=== PATIENT | male | born 1955 | race Caucasian/White ===

== ENCOUNTER 2016-12-11 06:17 | Emergency (ER) | payer OTHER ==
[2016-12-11 06:32] VITALS: BP 152/88
--- NOTE | 2016-12-11 07:11 | ED ---
Laceration/Wound HPI - HPI Summary HPI Summary: 61 male presents with complaints of a laceration to his left index finger knuckle after cutting himself with a knife by accident yesterday around 6pm. Patient states he was doing mechanical work trying to cut a wire towards himself and slipped cutting his left index finger. 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 States it bled a lot yesterday however he was able to control the bleeding by applying pressure and dressing. It did not become painful, swollen and red until this morning. He noticed that the cut appeared to be pretty deep when he was able to see. He also states it is in area of high movement causing the laceration to keep opening. Unknown last tetanus. Denies any other injuries and lacerations. He is able to move his finger, but he notices that the "tip of his index finer" appears to be deformed and feels tight. Denies numbness/tingling. - History of Current Complaint Stated Complaint: LEFT HAND LAC Time Seen by Provider: 12/11/16 06:41 Hx Obtained From: Patient Mechanism of Injury: Sharp/Blunt Trauma Onset/Duration: Sudden Onset, Lasting Days Aggravating: Movement Alleviating: Compression Timing: Constant Onset Severity: Moderate Current Severity: Moderate Pain Intensity: 7 Pain Scale Used: 0-10 Numeric Associated Signs & Symptoms: Redness, Pain, Joint Swelling Related Hx: Dominant Hand (Right) - ambidextrou, writes with right hand, Dominant Hand (Left), Recent Trauma - Allergy/Home Medications Allergies/Adverse Reactions: Allergies Allergy/AdvReac Type Severity Reaction Status Date / Time No Known Allergies Allergy Verified 03/18/14 11:27 PMH/Surg Hx/FS Hx/Imm Hx Endocrine/Hematology History: Denies: Hx Diabetes Cardiovascular History: Denies: Hx Hypertension, Hx Pacemaker/ICD History: Denies: Hx Renal Disease Musculoskeletal History: Denies: Hx Scoliosis Sensory History: Denies: Hx Hearing Aid Neurological History: Denies: Hx Headaches Psychiatric History: Denies: Hx Panic Disorder - Surgical History Surgery Procedure, Year, and Place: L4-5 fusion - Immunization History Date of Tetanus Vaccine: unknown Immunizations Up to Date: Yes Infectious Disease History: No Infectious Disease History: Denies: Traveled Outside the [place] in Last 30 Days - Family History Known Family History: Positive: None - Social History Alcohol Use: None Substance Use Type: Reports: None Smoking Status (MU): Never Smoked Tobacco Review of Systems Constitutional: Negative Cardiovascular: Negative Respiratory: Negative Positive: Arthralgia, Myalgia, Decreased ROM, Edema - left index finger Positive: Other - laceration to left index finer Neurological: Negative Psychological: Normal All Other Systems Reviewed And Are Negative: Yes Physical Exam Triage Information Reviewed: Yes Vital Signs On Initial Exam: Initial Vitals Temp Pulse Resp BP Pulse Ox 98.9 F 106 20 152/88 99 12/11/16 06:30 12/11/16 06:30 12/11/16 06:30 12/11/16 06:30 12/11/16 06:30 tachycardia and elevated BP noted. patient referred to follow up with pcp about HTN. Patient was anxious and in pain, HR re-taken and 90bpm. Vital Signs Reviewed: Yes Appearance: Positive: Well-Appearing, No Pain Distress, Well-Nourished Skin: Positive: Warm, Skin Color Reflects Adequate Perfusion - < 2 second cap refill b/l hand, Dry, Erythema @ - laceration of left 4th digit at PIP, posterior/dorsal side. edema, no active bleeding. laceration approximaetly 1 cm deep, 2 cm length and .5 cm wide. tendon visible. sensation and circulation intact. witthout foreign body, no crepitus or step off.. Negative: Cold, Cyanosis @ Head/Face: Positive: Normal Head/Face Inspection Eyes: Positive: Normal, Conjunctiva Clear ENT: Positive: Normal ENT inspection, Hearing grossly normal Neck: Positive: Supple, Nontender Respiratory/Lung Sounds: Positive: Clear to Auscultation, Breath Sounds Present Cardiovascular: Positive: Normal, RRR, Pulses are Symmetrical in both Upper and Lower Extremities - 2+ radial b/l Musculoskeletal: Positive: Normal, Strength/ROM Intact, Abnormal @ - laceration 4th left index finger, "mallet finger" deformity of DIP joint of left 4th index finger, stuck in flexion. appears extensor tendon injured, DIP not completely flexed; minmal. ~15-20 degrees. does have ROM in DIP unable to completely extend unless resting finger on hard surface. "Feels pulling"., Pain @ - left 4th index finger PIP joint, Edema Right - 4th left index finger PIP joint Neurological: Positive: Normal, Sensory/Motor Intact - sensation intact, Alert, Oriented to Person Place, Time, CN Intact II-III, NV Bundle Intact Distally Psychiatric: Positive: Normal Procedures - Splinting Location: 4th left finger to assist in mallet finger deformity Pre-Proc Neuro Vasc Exam: normal Post-Proc Neuro Vasc Exam: normal - Laceration/Wound Repair 1 Location: upper extremity - left 4th digit at PIP joint on dorsal hand Description: Linear Anesthesia: Local, 1.0%, Lido Length, Depth and Shape: 2 cm long, 1cm depth, .5cm wide, linear Betadine Prep?: Yes Irrigated w/ Saline (ccs): 100 Laceration/Wound Explored: clean, no foreign body removed Closure: Single Layer Suture Type: Nylon Number of Sutures: 3 Layer Closure?: No Sterile Dressing Applied?: Yes Diagnostics - Vital Signs Vital Signs Temp Pulse Resp BP Pulse Ox 12/11/16 06:30 98.9 F 106 20 152/88 99 - Laboratory Lab Statement: Any lab studies that have been ordered have been reviewed, and results considered in the medical decision making process. - Radiology index finger Left Xray Interpretation: No Acute Changes - NO FRACTURE OR FOREIGN BODY. Radiology Interpretation Completed By: Radiologist Laceration Repair Course/Dx - Course Course Of Treatment: 3 sutures placed without complication to laceration of left 4th index PIP joint. splint applied to same finger and DIP joint to assit in repair of extensor tendon injury. patient did not rupture entire tendon. remove sutures in ~7 days due to high area of movement. aware of worsening signs and symptoms. follow up with pcp to check on extensor tendon and mallet finger deformity. tetanus was updated. follow up with pcp to check BP. - Differential Dx Differental Diagnoses: Avulsion, Foreign Body, Fracture, Laceration, Puncture Wound, Other - Clinical Impression Provider Diagnoses: Extensor tendon laceration, finger, open wound, Mallet deformity of left index finger, Laceration of left index finger Discharge - Discharge Plan Condition: Stable Disposition: HOME Patient Education Materials: Laceration (ED), Care For Your Stitches (ED) Referrals: Shane Price MD [Primary Care Provider] - Additional Instructions: Keep dressing on and do not get it wet for the next 24-48 hours. Keep area clean and dry. Watch for signs of infection such as redness, increasing swelling, increasing pain, warmth and discharge. If these occur please seek medical attention. Stitches need to be removed in the next 7 days. Take Aleve for pain and inflammation and ice several times daily 20 minutes on and 20 minutes off. Keep splint on finger for atleast 1 week or until symptoms of mallet finger improve. Follow up with primary care provider.
[2016-12-11] MEDS ORDERED: Naproxen TAB* 250 MG PO ONE (07:16)
--- NOTE | 2016-12-11 08:05 | RAD ---
INDICATION: Laceration left second digit COMPARISON: None TECHNIQUE: AP, lateral, and oblique views were obtained. FINDINGS: There is no fracture or foreign body. There is mild soft tissue prominence at the second MCP joint. IMPRESSION: NO FRACTURE OR FOREIGN BODY.
[2016-12-11] MEDS ORDERED: Tetan/Diph/Pertus SYR(Tdap)* 0.5 ML SYR(BOOSTRIX) use SYR IM ONE (08:53)
== END 2016-12-11 09:31 | disposition home or self-care (01) ==
LOC: ED 06:17
DX: S66.321A Laceration of extensor muscle, fascia and tendon of left index finger at wrist and hand level, initial encounter (principal); M20.012 Mallet finger of left finger(s); W29.1XXA Contact with electric knife, initial encounter; Y93.89 Activity, other specified; Y92.9 Unspecified place or not applicable; R03.0 Elevated blood-pressure reading, without diagnosis of hypertension
CPT/HCPCS: 73140; 90471; 90715; 99281; A9270-GY